=== PATIENT | female | born 1960 | race African-American/Black ===

== ENCOUNTER 2016-06-30 07:40 | Emergency (ER) | payer OTHER ==
[~2016-06-30] VITALS: Ht 172.7 cm; Wt 107.0 kg
[~2016-06-30 07:40] MED LIST: ALBUTEROL0.09 MG/A1 INH; ALPRAZOLAM1 MG PO; AMOXIL500 MG PO; ATIVAN1 MG PO; AUGMENTIN 875-1 EACH PO; BENZONATATE200 M1 PO; CELEXA40 MG PO; CIPRO 500MG TA500 MG PO; CITALOPRAM HYDR20 MG PO; DILAUDID2 M1 PO; FLEXERIL10 MG PO; FLONASE120 SPRAY/ NASB; GABAPENTIN400 M2 PO; KEFLEX500 MG PO; LEADER MELATONIN5 MG PO; LEVAQUIN500 MG PO; LEVBID0.375 MG PO; LEVOTHYROXIN0.088 M1 PO; LEVOXYL88 MCG PO; LISINOPRIL2.5 MG PO; METFORMIN ER500 MG PO; MOTRIN800 MG PO; MULTIVITAMIN1 TAB PO; NEURONTIN300 MG PO; PANTOPRAZOLE SO40 MG PO; PERCOCET 325 MG1 TA2 PO; PERCOCET 325 MG1 TAB PO; PERCOCET 5-3251 EACH PO; PRAVASTATIN SOD40 MG PO; PREDNISONE50 M1 PO; PROVENTIL HFA6.7 GM INH; ROBITUSSIN W/CO10 ML PO; TESSALON PERLE100 M1 PO; VICODIN7.5-300 PO; ZITHROMAX250 M2 PO; ZOFRAN 4 MG TABL4 MG PO; ZOFRAN ODT4 M1 SL
[2016-06-30 08:36] LABS: ABSOLUTE BASOPHIL COUNT 0 /CUMM (0.0-0.2); ABSOLUTE EOSINOPHIL COUNT 0.3 /CUMM (0.0-0.7); ABSOLUTE GRANULOCYTE CT 2.4 /CUMM (1.4-6.5); ABSOLUTE LYMPH COUNT 2.5 /CUMM (1.2-3.4); ABSOLUTE MONOCYTE COUNT 0.4 /CUMM (0.10-0.60); BASOPHIL % 0.7 % (0.0-2.0); EOSINOPHIL % 4.7 % (0-5); GRANULOCYTE % 43.4 % (42.2-75.2); HEMATOCRIT 30.1 % (37-47); MEAN CORPUSCULAR HGB 31.5 PG (27.0-31.0); MEAN CORPUSCULAR HGB CONC 32.9 G/DL (33.0-37.0); MEAN CORPUSCULAR VOLUME 95.6 FL (81.0-99.0); MEAN PLATELET VOLUME 8.4 FL (7.4-10.4); PLATELET COUNT 245 /CUMM (130-400); RBC DISTRIBUTION WIDTH 13.9 % (11.5-14.5); RED BLOOD CELL CT 3.15 /CUMM (4.20-5.40); WHITE BLOOD CELL COUNT 5.6 /CUMM (4.8-10.8)
--- NOTE | 2016-06-30 08:40 | ED GI/GU/ABDOMINAL COMPLAINT ---
History of Present Illness General Chief Complaint: Female Urogenital Problems Stated Complaint: ? UTI KIDNEY PAIN Source: patient, old records Exam Limitations: no limitations Vital Signs & Intake/Output Vital Signs & Intake/Output Vital Signs Date Time Temp Pulse Resp B/P Pulse O2 O2 Flow FiO2 Ox Delivery Rate 06/30 1504 76 18 115/84 98 Room Air 06/30 1251 97.5 70 20 91/50 96 Room Air 06/30 0748 97.4 94 20 106/73 98 Room Air Allergies Coded Allergies: Iodinated Contrast Media - Oral and (IODINATED CONTRAST MEDIA - IV DYE) (THROAT GETS ITCHY 08/12/15) NSAIDS (Non-Steroidal Anti-Inflamma (BLOOD DEFICIENCY G6PD 08/12/15) Sulfa (Sulfonamide Antibiotics) (BLOOD DEFICIENCY G6PD 08/12/15) aspirin (BLOOD DEFICIENCY G6PD 08/12/15) erythromycin base (GI UPSET 08/12/15) fentanyl (HALLUCINATIONS 08/12/15) oxycodone (From OXYCONTIN) (CONSTIPATION 08/12/15) Reconcile Medications Albuterol Sulfate (Proventil Hfa) 90 MCG HFA.AER.AD 2 PUF INH Q4 PRN WHEEZE/ COUGH Amoxicillin/Potassium Clav (Augmentin 875-125 Tablet) 875 MG-125 MG TABLET 1 TAB PO BID BRONCHITIS Benzonatate (Tessalon Perle) 100 MG CAPSULE 1 CAP PO TID PRN COUGH Citalopram Hydrobromide (Celexa) 40 MG TAB 1 TAB PO DAILY MENTAL HEALTH ( Reported) Gabapentin 400 MG CAPSULE 1 CAP PO TID ANXIETY/NERVE PAIN (Reported) Hyoscyamine Sulfate (Levbid) 0.[address] 1 TAB PO BID GI (Reported) Levothyroxine Sodium (Levoxyl) 88 MCG TABLET 1 TAB PO DAILY THYROID (Reported ) Lisinopril 2.5 MG TABLET 1 TAB PO QPM KIDNEY PROTECTION (Reported) Melatonin (Unknown Strength) TAB (Unknown Dose) PO QPM SLEEP (Reported) Metformin Hydrochloride (Metformin ER) [address] 2 TAB PO QPM QPM (Reported) Multivitamin (Multiple Vitamins) 1 TAB TAB 1 TAB PO DAILY SUPPLEMENT ( Reported) Oxycodone HCl/Acetaminophen (Percocet 5-325 MG Tablet) 5 MG-325 MG TABLET 1 TAB PO 4XDP PRN PAIN SIX...[id number] Oxycodone HCl/Acetaminophen (Percocet 5-325 MG Tablet) 5 MG-325 MG TABLET 1 TAB PO Q6P PRN flank pain Pravastatin Sodium 40 MG TABLET 1 TAB PO QPM CHOLESTEROL (Reported) Prednisone 50 MG TABLET 1 TAB PO DAILY BRONCHITIS Triage Note: C/O R FLANK PAIN X 3 DYAS, WORSE TODAY. CURRENTLY BEING TXD FOR UTI, FINISHED COURSE OF CIPRO. WAS PRESCRIBED KEFLEX BY DR. SALINAS 3 DAYS AGO, HASNT STARTED YET. STATE SHE HAS PAIN ON URINATION. PMH: KIDNEY STENT AND KIDNEY STONES. Triage Nurses Notes Reviewed? yes LMP (ages 10-50): post menopausal ? n Is pt currently ? No Onset: 2 weeks Duration: week(s):, changing over time, continues in ED, waxing and waning Timing: recent history Quality/Severity: moderate, severe, stabbing Location: right flank Radiation: suprapubic Activities at Onset: none Prior Abdominal Problems: similar symptoms Past Sexual History: Unobtainable at this time Modifying Factors: Worsens With: palpation. Associated Symptoms: abdominal pain, loss of appetite, nausea/vomiting HPI: 2 weeks prior to admission patient complains of dysuria and suprapubic pain right flank pain. Pain is described as achy and sharp moderate to severe in nature with radiation as above. History with Cipro for UTI with recent change to Keflex on Friday which has not been taken. Urine culture was positive for Escherichia coli sensitive to Cipro. She denies fever chills chest pain cough shortness of breath headache vomiting diarrhea or rash Past History Travel History Traveled to [place] past 21 day No Medical History Any Pertinent Medical History? see below for history Neurological: insomnia EENT: NONE Cardiovascular: hyperlipidemia Gastrointestinal: NONE Hepatic: NONE Renal: NONE (calcium oxalate stones), nephrolithiasis Musculoskeletal: NONE Psychiatric: NONE Endocrine: diabetes, hypothyroidism Blood Disorders: G6PD deficiency Cancer(s): NONE Surgical History Surgical History: hysterectomy, status post ureteral stent Psychosocial History Who do you live with Family Services at Home None What is your primary language Pashto Tobacco Use: Never used ETOH Use: denies use Family History Family History, If Any: Relation not specified for: FH: diabetes mellitus Hx Contributory? No Review of Systems Review of Systems Constitutional: Reports: see HPI, malaise. EENTM: Reports: no symptoms. Respiratory: Reports: no symptoms. Cardiovascular: Reports: no symptoms. GI: Reports: see HPI, abdominal pain, nausea. Genitourinary: Reports: see HPI, dysuria. Musculoskeletal: Reports: no symptoms. Skin: Reports: no symptoms. Neurological/Psychological: Reports: no symptoms. Hematologic/Endocrine: Reports: no symptoms. Immunologic/Allergic: Reports: no symptoms. All Other Systems: Reviewed and Negative Physical Exam Physical Exam General Appearance: well developed/nourished, alert, awake, anxious, moderate distress, obese Head: atraumatic, normal appearance Eyes: Bilateral: normal appearance, PERRL, EOMI, normal inspection. Ears, Nose, Throat, Mouth: hearing grossly normal, moist mucous membrane Neck: normal inspection, supple, full range of motion, normal alignment Respiratory: normal breath sounds, chest non-tender, no respiratory distress, quiet respiration, lungs clear Cardiovascular: regular rate/rhythm, normal peripheral pulses, norml femoral pulses equa Peripheral Pulses: 4+ carotid (R), 4+ carotid (L), 2+ radial (R), 2+ radial (L) Gastrointestinal: normal bowel sounds, soft, non-tender, no organomegaly Back: normal inspection, normal range of motion, CVA tenderness (R), no vertebral tenderness Extremities: normal range of motion, no ligament instability Neurologic/Psych: no motor/sensory deficits, awake, alert, oriented x 3, normal gait, normal mood/affect, leaf tier II-XII nml as tested Skin: intact, normal color, warm/dry Core Measures ACS in differential dx? No Severe Sepsis Present: No Septic Shock Present: No Progress Differential Diagnosis: appendicitis, biliary colic, kidney stone, pancreatitis, PUD/GERD, UTI/pyelo Plan of Care: Orders Procedure Date/time Status Regular Diet 06/30 D Active URINALYSIS 06/30 0810 Complete LIPASE 06/30 0809 Complete COMPREHENSIVE METABOLIC PANEL 06/30 0809 Complete CBC WITHOUT DIFFERENTIAL 06/30 0809 Complete Laboratory Tests 06/30/16 0821: Anion Gap 7, Estimated GFR > 60, BUN/Creatinine Ratio 21.3, Glucose 84, Calcium 9.4, Total Bilirubin 0.5, AST 25, ALT 26, Alkaline Phosphatase 81, Total Protein 7.0, Albumin 4.0, Globulin 3.0, Albumin/Globulin Ratio 1.3, Lipase 117, CBC w Diff NO MAN DIFF REQ, RBC 3.15 L, MCV 95.6, MCH 31.5 H, RDW 13.9, MPV 8.4, Gran % 43.4, Lymphocytes % 44.8, Monocytes % 6.4, Eosinophils % 4.7, Basophils % 0.7, Absolute Granulocytes 2.4, Absolute Lymphocytes 2.5, Absolute Monocytes 0.4 , Absolute Eosinophils 0.3, Absolute Basophils 0, PUBS MCHC 32.9 L, Urine Color YEL, Urine Clarity CLEAR, Urine pH 6.0, Ur Specific [place] >= 1.030, Urine Protein NEG, Urine Ketones NEG, Urine Nitrite NEG, Urine Bilirubin NEG, Urine Urobilinogen 0.2, Ur Leukocyte Esterase NEG, Ur Microscopic EXAM NOT REQUIRED, Urine Hemoglobin NEG, Urine Glucose NEG Initial ED EKG: none Comments: Multiple re-evaluations with continued pain. Offered hospitalization for intractable pain that she declines. Develops anxiety and panic. Additional analgesia and anxiolytic ordered. Departure Departure Time of Disposition: 1544 Disposition: HOME OR SELF CARE Condition: Stable Clinical Impression Primary Impression: Abdominal pain Qualifiers: Abdominal location: unspecified location Qualified Code: R10.9 - Unspecified abdominal pain Secondary Impressions: Anxiety Referrals: GERALD BRENNAN,FARAZ ARAGON MD,QUIRINO (PCP/Family) Departure Forms: Customer Survey General Discharge Information RELEASE- WORK Prescriptions: Current Visit Scripts Oxycodone HCl/Acetaminophen (Percocet 5-325 MG Tablet) 1 TAB PO Q6P PRN flank pain #15 TAB PA/MANAGER SERVICE DESK Co-Sign Statement Statement: ED Attending supervision documentation- [] I saw and evaluated the patient. I have also reviewed all the pertinent lab results and diagnostic results. I agree with the findings and the plan of care as documented in the PA's/MANAGER SERVICE DESK's documentation. x I have reviewed the ED Record and agree with the PA's/MANAGER SERVICE DESK's documentation. [] Additions or exceptions (if any) to the PAs/MANAGER SERVICE DESK's note and plan are summarized below: [] Critical Care Note Critical Care Note Critical Care Time: 30-74 min (40)
--- NOTE | 2016-06-30 08:51 | CT SCAN REPORT ---
EXAMINATION: CT ABDOMEN AND PELVIS WITHOUT CONTRAST CLINICAL INFORMATION: Renal colic right flank pain COMPARISON: CT of the abdomen pelvis from 01/22/2016 TECHNIQUE: Multidetector volumetric imaging was performed from the superior aspect of the liver through the pubic symphysis. Sagittal and coronal reformatted images were obtained on the technologist's workstation. DLP: 1156 mGy-cm. FINDINGS: LUNG BASES: The visualized lung bases are unremarkable. LIVER, GALLBLADDER, AND BILIARY TREE: The liver is normal in size, shape, and attenuation. No focal hepatic lesion or biliary ductal dilatation is present. The gallbladder is unremarkable with no evidence of radiopaque gallstones, gallbladder wall thickening, or obvious pericholecystic inflammatory changes. PANCREAS: The pancreas is normal in appearance and unchanged. SPLEEN: Spleen is normal in size with no focal lesion ADRENAL GLANDS: Normal KIDNEYS AND URETERS: The kidneys are normal in size, shape, and attenuation. No hydronephrosis, hydroureter, or calculi seen. No perinephric stranding. Several round calcifications in the pelvis are unchanged in position and appearance from prior study and are outside the urinary tract BLADDER: The urinary bladder is incompletely distended and normal in appearance. GASTROINTESTINAL TRACT: There is no evidence for large or small bowel obstruction or inflammation appendix is not visualized. No inflammatory changes are seen in the right lower quadrant. There is no evidence for diverticulitis. ABDOMINAL WALL: No significant hernia is appreciated. LYMPH NODES: No adenopathy VASCULAR: The abdominal aorta and inferior vena cava are normal in size and appearance PELVIC VISCERA: No mass is seen in the pelvis OSSEOUS STRUCTURES: No acute bony abnormality. There is some facet arthropathy in the lumbar spine IMPRESSION: No acute abnormality is seen in the CT scan of the abdomen and pelvis. Specifically there is no evidence for renal or ureteral stone or obstruction. There is no change from prior
[2016-06-30 15:04] VITALS: BP 115/84
[2016-06-30] MEDS ORDERED: PERCOCET 5-3251 EACH PO (15:47)
== END 2016-06-30 16:22 ==
LOC: ERH 07:40
PROVIDERS: Emergency Medicine
DX: R10.9 Unspecified abdominal pain (principal); F41.9 Anxiety disorder, unspecified; E11.9 Type 2 diabetes mellitus without complications; Z79.84 Long term (current) use of oral hypoglycemic drugs
CPT/HCPCS: 74176; 81003; 96374; 96375; 96376; J0131; J1885; J2405

== ENCOUNTER → 2016-08-08 | Day surgery (SDC) | payer OTHER ==
[2007-01-15 11:42] VITALS: BP 143/78
--- NOTE | 2016-08-08 12:26 | Operative Report ---
Operative/Inv Procedure Report Surgery Date: 08/08/16 Name of Procedure: Cystoscopy. bilateral retrograde pyelogram with fluoroscopy. Bilateral flexible ureteroscopy's with laser standby. Pre-Operative Diagnosis: No tumor no stone, normal findings bilaterally. Bilateral renal colic that the patient claims to be severe. Post-Operative Diagnosis: Same Estimated Blood Loss: scant Surgeon/Veterinary Technician: FARAZ DUARTE MD Anesthesia: laryngeal mask airway Complications: None Operative/Procedure Note Note: Patient was taken to the operating room placed on the OR table in supine position. Timeout was performed, with the patient awake, in order to confirm the patient's identity, procedure, bilaterality, antibiotics, anesthesia, and other pertinent jude-operative information. After adequate anesthesia and antibiotics, the patient was then placed in lithotomy stirrups, draped and prepped in the usual surgical fashion. A 22 Malaysian cystoscope sheath with 30 angle lens was inserted without difficulty. Upon entering the bladder, the bladder was noted to be free of tumor, and free of stone. Using a ureteral open -ended stent, starting with the left ureter, a retrograde pyelograms was perfomed, with fluoroscopy, revealing no filling defects, with quick and adequate drainage of the contrast material bilaterally, after the removal of the ureter open-ended stent. The same retrograde procedure was performed on the right side, again revealing no filling deffect, and brisk efflux of contrast material. As the pt has been c/o severe renal colic bilat, and demand to proceed with ureteroscopy diagnostic/treatment of potential stone, the plan for bilateral ureterscopy proceeded. Holmium/YAG laser was on standby and turned on. The left orifice was intubated with a 0.035 gluide wire and advanced to the right renal pelvis without difficulty. Using the gluide wire, and fluoroscope, the flexible uretersocope was placed over the gluide wire and advanced to the right renal pelvis with fluoroscopic guidance. Thorough calycoscopy and pyeloscopy confirms NO stone, and NO tumor in the renal calyxes, nor renal pelvis. At this point, the ureteroscope was then gently retracted from the left renal pelvis without difficulty, and no other stone, nor any tumor, was visualized along the left ureter with direct visualization. A similar procedure was performed on the right side ureter and kidney: The 22 Malaysian cystoscope sheath with 30 angle lens was re-inserted into the bladder without difficulty. Using a ureteral open-ended stent inserted into the right ureter orifice, a retrograde pyelograms was perfomed, with fluoroscopy. This revealed no filling defects, with quick and adequate drainage of the contrast, after the removal of the ureter open-ended stent. However, once again , as the pt has been c/o severe colic bilat, the plan for bilat. ureterscopy proceeded. Holmium/YAG laser was on standby. The right orifice was intubated with a 0.035 gluide wire and advanced to the right renal pelvis without difficulty. Using the gluide wire, and fluoroscope, the flexible uretersocope was rail-roaded over the gluide wire, and advanced to the right renal pelvis, with fluoroscopic guidance. Thorough calycoscopy, and pyeloscopy confirms no stone in the calyx, nor renal pelvis. The ureteroscope was then gently retracted from the right renal pelvis without difficulty. Visualizing the entire ureter, there were no additional findins. The Yag Laser on standby, was now powered down. The bladder was then drained. All sponge needle and instrument count were correct at the end of the case. The patient tolerated the procedure well was then taken to the recovery room in satisfactory condition. She is discharged home with antibiotics and pain meds. Discharge Disposition: PACU CC: FARAZ DUARTE MD
--- NOTE | 2016-08-08 17:23 | RADIOLOGY REPORT ---
EXAMINATION: Intraoperative bilateral retrograde pyelogram CLINICAL INDICATION: Ureteroscopy COMPARISON: None TECHNIQUE: 8 films from an intraoperative retrograde pyelogram are submitted. FINDINGS: No uroepithelial abnormality is seen. IMPRESSION: Unremarkable examination.
== END ==
LOC: STS 04:23
DX: N23 Unspecified renal colic (principal); Z87.440 Personal history of urinary (tract) infections; I10 Essential (primary) hypertension; E11.9 Type 2 diabetes mellitus without complications; Z79.84 Long term (current) use of oral hypoglycemic drugs
CPT/HCPCS: 74000; J0131; J1170; J1885; J2250

== ENCOUNTER 2017-12-20 16:11 | Emergency (ER) | payer OTHER ==
[~2017-12-20] VITALS: Ht 175.3 cm; Wt 111.1 kg
[~2017-12-20 16:11] MED LIST changes: +ATIVAN1 M1 PO; +CELEXA40 M1 PO; -CELEXA40 MG PO; +CYCLOBENZAPRINE10 M1 PO; +GLUCOPHAGE XR500 M1 PO; +LEVBID0.375 M1 PO; -LEVBID0.375 MG PO; +LIDODERM1 EACH TOP; +LISINOPRIL2.5 M1 PO; -LISINOPRIL2.5 MG PO; -METFORMIN ER500 MG PO; +MULTIPLE VITAM1 EAC2 PO; -MULTIVITAMIN1 TAB PO; +NORCO 5-325 TA1 EACH PO; +PRAVACHOL40 M1 PO; -PRAVASTATIN SOD40 MG PO
[2017-12-20 16:21] VITALS: BP 113/76
--- NOTE | 2017-12-20 16:59 | ULTRASOUND REPORT ---
EXAMINATION: US TRIPLEX LOWER EXTREMITY, LEFT CLINICAL INFORMATION: Left lower extremity pain and swelling. COMPARISON: None TECHNIQUE: Color-flow triplex imaging with spectral analysis and compression Doppler were performed on the lower extremity. FINDINGS: Respiratory variation, normal compression and augmented flow are noted throughout the lower extremity. The visualized common femoral vein, superficial femoral vein, profunda femoral vein, popliteal vein and midcalf peroneal and posterior tibial venous segments show no evidence of deep venous thrombosis. There is a 3.8 x 0.8 x 2.2 cm popliteal fossa Xavier's cyst. IMPRESSION: No evidence of deep venous thrombosis involving the lower extremity. 3.8 cm popliteal fossa Xavier's cyst.
--- NOTE | 2017-12-20 17:19 | ED UPPER/LOWER EXTREMITY COMPL ---
History of Present Illness General Chief Complaint: Lower Extremity Problems Stated Complaint: L LEG PAIN Source: patient, old records Exam Limitations: no limitations Vital Signs & Intake/Output Vital Signs & Intake/Output Vital Signs Date Time Temp Pulse Resp B/P B/P Pulse O2 O2 Flow FiO2 Mean Ox Delivery Rate 12/20 1735 97 Room Air 12/20 1621 97.9 94 18 113/76 98 Room Air Allergies Coded Allergies: Iodinated Contrast- Oral and IV Dye (IODINATED CONTRAST MEDIA - IV DYE) (THROAT GETS ITCHY PER PT IF PREMEDICATED SHE IS FINE 12/20/17) NSAIDS (Non-Steroidal Anti-Inflamma (BLOOD DEFICIENCY G6PD 08/12/15) Sulfa (Sulfonamide Antibiotics) (BLOOD DEFICIENCY G6PD 08/12/15) aspirin (BLOOD DEFICIENCY G6PD 08/12/15) erythromycin base (GI UPSET 08/12/15) fentanyl (HALLUCINATIONS 08/12/15) oxycodone (From OXYCONTIN) (CONSTIPATION 11/30/17) Reconcile Medications Citalopram Hydrobromide (Celexa) 40 MG TABLET 1 TAB PO DAILY ANXIETY/ DEPRESSION (Reported) Gabapentin 400 MG CAPSULE 2 CAP PO QAM ANXIETY/NERVE PAIN (Reported) Gabapentin 400 MG CAPSULE 1 CAP PO NOON ANXIETY/NERVE PAIN (Reported) Gabapentin 400 MG CAPSULE 3 TAB PO QPM ANXIETY/NERVE PAIN (Reported) Hydroxyzine Pamoate 25 MG CAPSULE 1 CAP PO TID PRN ANXIETY (Reported) Hyoscyamine Sulfate (Levbid) 0.375 MG TAB.ER.12H 1 TAB PO BID GI (Reported) Levothyroxine Sodium (Levoxyl) 88 MCG TABLET 1 TAB PO MONTHRUFRI THYROID ( Reported) Lisinopril 2.5 MG TABLET 1 TAB PO QPM KIDNEY PROTECTANT (Reported) Metformin HCl (Glucophage XR) 500 MG TAB.ER.24H 2 TAB PO QPM DM (Reported) with food Multivitamin (Multiple Vitamins) 1 EACH TABLET 1 TAB PO DAILY SUPPLEMENT ( Reported) Pravastatin Sodium (Pravachol) 40 MG TABLET 1 TAB PO QPM CHOLESTEROL ( Reported) Ramelteon (Rozerem) 8 MG TABLET 1 TAB PO PRN SLEEP (Reported) Triage Note: PT TO ER C/C LEFT LEG PAIN X 1.5 WEEKS, WORSE WITH WALKING AND STANDING. PAIN WORSE AT NIGHT. Triage Nurses Notes Reviewed? yes HPI: 56M PMH T2DM, G6PD deficiency, multiple right knee surgeries presents with several weeks of left knee pain, worse behind her knee and radiating down her lateral lower leg. Pain is worse when trying to sleep, relieved by nothing. No improvement with Motrin. She had fallen and landed on her right shoulder a month ago, and has not followed up with orthopedic referral. SHe has no other complaints. Past History Travel History Traveled to [place] past 21 day No Medical History Any Pertinent Medical History? see below for history Neurological: insomnia EENT: NONE Cardiovascular: hyperlipidemia Gastrointestinal: NONE Hepatic: NONE Renal: nephrolithiasis Musculoskeletal: NONE Psychiatric: anxiety, depression Endocrine: diabetes, hypothyroidism Blood Disorders: G6PD deficiency Cancer(s): NONE Surgical History Surgical History: hysterectomy, status post ureteral stent Psychosocial History Who do you live with Family Services at Home None What is your primary language Ukrainian Tobacco Use: Never used Family History Family History, If Any: Relation not specified for: FH: diabetes mellitus Hx Contributory? No Review of Systems Review of Systems Constitutional: Reports: no symptoms. EENTM: Reports: no symptoms. Respiratory: Reports: no symptoms. Cardiovascular: Reports: no symptoms. Gastrointestinal/Abdominal: Reports: no symptoms. Genitourinary: Reports: no symptoms. Musculoskeletal: Reports: no symptoms. Skin: Reports: no symptoms. Neurological/Psychological: Reports: no symptoms. Hematologic/Endocrine: Reports: no symptoms. Immunological: Reports: no symptoms. All Other Systems: Reviewed and Negative Physical Exam Physical Exam General Appearance: well developed/nourished, no apparent distress Head: atraumatic, normal appearance Eyes: Bilateral: normal appearance. Ears, Nose, Throat: hearing grossly normal Neck: normal inspection, full range of motion Cardiovascular/Respiratory: normal breath sounds, normal peripheral pulses Back: normal inspection, normal range of motion Leg Left: normal range of motion, normal inspection Leg Right: normal range of motion, normal inspection Hip Left: normal range of motion, normal inspection Hip Right: normal range of motion, normal inspection Knee Left: normal range of motion, normal inspection Knee Right: normal range of motion, normal inspection Skin: intact, normal color, warm/dry Progress Differential Diagnosis: dislocation, fracture, sprain, tendon injury Plan of Care: Orders Procedure Date/time Status [id number], LEFT 12/21 1623 Active XRY-KNEE, LEFT 12/20 162 Active Current Medications Sig/Paul Start time Last Medication Dose Stop Time Status Admin Oxycodone/ 1 TAB ONCE ONE 12/20 1844 UNVr Acetaminophen 12/20 1845 (Percocet) Diagnostic Imaging: Viewed by Me: Radiology Read, Ultrasound. Discussed w/RAD: Radiology Read, Ultrasound. Radiology Impression: PATIENT: SHRADDHA CULP PRESENT AGE: 56 PATIENT ACCOUNT NO: [id number] : 58 LOCATION: [facility] ORDERING PHYSICIAN: Renee BARRERA SERVICE DATE: 12/20/17 EXAM TYPE: US - US-UNILATERAL VENOUS DOPPLER EXAMINATION: US TRIPLEX LOWER EXTREMITY, LEFT CLINICAL INFORMATION: Left lower extremity pain and swelling. COMPARISON: None TECHNIQUE: Color-flow triplex imaging with spectral analysis and compression Doppler were performed on the lower extremity. FINDINGS: Respiratory variation, normal compression and augmented flow are noted throughout the lower extremity. The visualized common femoral vein, superficial femoral vein, profunda femoral vein, popliteal vein and midcalf peroneal and posterior tibial venous segments show no evidence of deep venous thrombosis. There is a 3.8 x 0.8 x 2.2 cm popliteal fossa Xavier's cyst. IMPRESSION: No evidence of deep venous thrombosis involving the lower extremity. 3.8 cm popliteal fossa Axvier's cyst. DICTATED BY: Pablo Avila MD DATE/TIME DICTATED:12/20/171654 DIRECTOR ORACLE DATABASE:CHRISTINA DATE/TIME TRANSCRIBED:12/20/171654 CONFIDENTIAL, DO NOT COPY WITHOUT APPROPRIATE AUTHORIZATION. <Electronically signed in Other Vendor System> SIGNED BY: Pablo Avila MD 12/20/171658 Departure Departure Disposition: HOME OR SELF CARE Condition: Stable Clinical Impression Primary Impression: Xavier's cyst of knee Qualifiers: Laterality: left Qualified Code: M71.22 - Synovial cyst of popliteal space [Xavier], left knee Secondary Impressions: Osteoarthritis of left knee Qualifiers: Osteoarthritis type: primary Qualified Code: M17.12 - Unilateral primary osteoarthritis, left knee Referrals: Diana BRENNAN,Jose Manuel Wheeler MD,Luke (PCP/Family) Additional Instructions: Follow up with your PCP for pain control. Follow up with orthopedics for your knee. Return to ER if new or worsening symptoms. Departure Forms: Customer Survey General Discharge Information
[2017-12-20] MEDS ORDERED: GABAPENTIN400 M2 PO ×2 (17:22)
[2017-12-20] MEDS ORDERED: ROZEREM8 M1 PO (17:25)
[2017-12-20] MEDS ORDERED: HYDROXYZINE PAM25 M2 PO (17:27)
--- NOTE | 2017-12-20 18:41 | RADIOLOGY REPORT ---
EXAMINATION: XR TIBIA AND FIBULA, LEFT CLINICAL INFORMATION: Pain rule out fracture COMPARISON: None TECHNIQUE: AP and lateral views of the left tibia and fibula were obtained. FINDINGS: The bones and soft tissues are normal. No fracture. No osseous lesions. IMPRESSION: Normal left tibia and fibula.
--- NOTE | 2017-12-20 18:41 | RADIOLOGY REPORT ---
EXAMINATION: XR KNEE, LEFT CLINICAL INFORMATION: Pain and swelling rule out fracture COMPARISON: None available at the time of this dictation. TECHNIQUE: frontal, lateral, tunnel and patella sunrise views FINDINGS: BONES: No fracture or dislocation is present. JOINTS: Narrowing of medial joint space suggesting early DJD. SOFT TISSUE: There is a small joint effusion. IMPRESSION: 1. No fracture. 2. Mild DJD and a small knee joint effusion.
== END 2017-12-20 19:06 ==
LOC: ERH 16:11
DX: M71.22 Synovial cyst of popliteal space [Baker], left knee (principal); M17.12 Unilateral primary osteoarthritis, left knee
CPT/HCPCS: 73560-LT; 73590-LT; 96372; J1885